=== PATIENT | female | born 1970 | race Hispanic/Latino ===

== ENCOUNTER 2022-04-16 02:16 | Emergency (ER) | payer MEDICAID ==
[~2022-04-16] VITALS: Ht 154.9 cm; Wt 72.7 kg
--- NOTE | 2022-04-16 02:25 | NUR ---
Arrival PT WAS TRAVELING WITH HER SPOUSE DEVELOPED FEVER AND CHILLS TOOK ADVIL CHECKED BLOOD SUGAR STATED IT WAS HIGH SO SHE TOOK 10 UNITS INSULIN , PRESENTED TO ED AMBULATORY C/O FEVER , CHILLS, DARBY AND BODY ACHES, HIGH BLOOD SUGAR, FINGER STICK BS 361 MG/DL, AFEBRILE, MONIOTRS APPLIED VS BROOKE, DR. ALEGRE AT BEDSIDE.
[2022-04-16 02:46] VITALS: BP 120/84
--- NOTE | 2022-04-16 03:58 | ER.PDOC ---
General Chief Complaint: Requesting Medical Care Stated Complaint: FEVER, CHILLS, HEADACHE Time seen by MD: 02:30 Source: patient Exam Limitations: no limitations History of Present Illness Initial Comments fevers, chills, DARBY, body aches and pains onset just PTER Timing/Duration: abrupt, this evening Severity: severe Associated Symptoms: fever/chills, headache Constitutional: see HPI EENTM: denies no symptoms reported, denies see HPI, denies eye pain, denies blurred vision, denies tearing, denies double vision, denies ear pain, denies ear discharge, denies nose pain, denies nose congestion, denies throat pain, denies throat swelling, denies mouth pain, denies mouth swelling, denies other Respiratory: denies no symptoms reported, denies see HPI, denies cough, denies orthopnea, denies shortness of breath, denies SOB with exertion, denies SOB at rest, denies stridor, denies wheezing, denies other Psychiatric/Neurological: see HPI All Other Systems: Reviewed and Negative Past Medical History Medical History: diabetes Social History Alcohol Use: none Drug Use: none Physical Exam General Appearance: alert, no distress Eye: eyes nml inspection, lids & conjunct. nml, PERRL, no nystagmus Ear: ear nml Nose: nose nml Throat: pharynx nml, airway nml Neck: nml inspection, supple Respiratory: no resp.distress, breath sounds nml Abdomen: non-tender, no organomegaly CVS: reg rate & rhythm, heart sounds nml Skin: color nml, no rash, warm/dry Extremities: non-tender, nml ROM, no pedal edema NEURO/PSYCH: oriented x 3, CN's nml as tested, motor nml, sensation nml, mood/affect nml Results/Orders Results/Orders Orders - KEYANNA ALEGRE MD Influenza A&B (04/16/22 02:53) Covid19 Antigen Tasha Fernanda (04/16/22 02:53) Vital Signs Date Time Temp Pulse Resp B/P (MAP) Pulse Ox O2 Delivery O2 Flow Rate FiO2 04/16/22 02:46 98.9 119 20 04/16/22 02:46 98.9 119 20 120/84 (96) 99 Room Air* 0 21 04/16/22 02:46 98.9 119 20 99 Laboratory Tests Test 04/16/22 02:39 04/16/22 02:58 POC Glucose 361 (70 - 110) H Influenza Type A Antigen NEGATIVE (NEG) Influenza Type B Antigen NEGATIVE (NEG) SARS-CoV-2 Antigen (Rapid) NEGATIVE (NEGATIVE) Progress Progress ddx: covid, flu ER DEPART Departure Time of Disposition: 03:56 Disposition: 01 HOME / SELF CARE / HOMELESS Impression: Primary Impression: Viral illness Additional Impression: Hyperglycemia due to diabetes mellitus Condition: Improved Patient Instructions: Diabetes and Standards of Medical Care, Fever, Hyperglycemia, [id number], Viral Infections Referrals: PCP,UNKNOWN (PCP) PRIMARY CARE PROVIDER Duration or Time Spent with Pa: 20 Problem Qualifiers KEYANNA ALEGRE MD Apr 16, 2022 03:58
[2022-04-16 04:10] VITALS: BP 120/80
== END 2022-04-16 04:10 | disposition home or self-care (01) ==
LOC: ER 02:16
DX: B34.9 Viral infection, unspecified (principal); E11.65 Type 2 diabetes mellitus with hyperglycemia; Z20.822 Contact with and (suspected) exposure to COVID-19
CPT/HCPCS: 82948; 87426; 87804; 99283